=== PATIENT | female | born 1990 | race Hispanic/Latino ===

== ENCOUNTER 2017-01-29 12:06 | Inpatient (IN) | payer MEDICAID ==
--- NOTE | 2017-01-29 13:23 | Ultrasound Report ---
BIOPHYSICAL PROFILE: INDICATION: well being. COMPARISON: None similar. TECHNIQUE: Transabdominal ultrasound with Doppler interrogation. 2 - breathing movements 2 - movements 2 - posture and tone 2 - Qualitative amniotic fluid volume 8 - TOTAL SCORE OF POSSIBLE 8 Heart Rate (bpm) 165
--- NOTE | 2017-01-29 14:18 | Ultrasound Report ---
OB LIMITED INDICATION: well being. Evaluate NAYANA. COMPARISON: None similar at this institution. TECHNIQUE: Transabdominal grayscale ultrasound with Doppler interrogation. Gestation: Haq Position: Cephalic Amniotic Fluid: WNL (7-24 cm) NAYANA = 20 cm Heart Rate: 165 BPM
[2017-01-29 14:46] LABS: Urine Drugs of Abuse Note Disclamer
[2017-01-29 14:53] LABS: Bilirubin,Urine NEG (Negative); Blood,Urine NEG (Negative); Ketones,Urine NEG (Negative); Leukocyte Esterase,Urine TR (Negative); Mucus,Urine FEW /HPF; Nitrite,Urine NEG (Negative); Protein,Urine <15 mg/dL mg/dL (Negative); Urobilinogen,Urine < 2.0 mg/dL (<2.0)
--- NOTE | 2017-01-29 15:04 | History and Physical Report ---
History of Present Illness Date of examination: 01/29/17 Date of admission: 01/29/17 12:23 Chief complaint: Elevated blood pressure History of present illness: 26-year-old at 35+6 weeks presents with the above complaints and issues, she is a [facility] patient. Essential history this patient seen in the office and was sent to the triage for concern about vaginal bleeding; she had a BPP and NAYANA done which were 8 out of 8 with an NAYANA of 20. Triage however, patient was noted to have elevated blood pressures in the range 141-157/97-109. She gives an oral history of having ??increased blood pressure prior to being but it is not clear that she saw a physician and she was never started on medication. Early In , she claims her blood pressure was normal. Denies headache, no scotomata but she does have a history of heartburn. Past History Past Medical History: no pertinent history, other (per HPI) Past Surgical History: no surgical history [employer] History: denies: chlamydia, gonorrhea, hepatitis B, hepatitis C, herpes, HIV , syphilis, trichomonas Social history: single, smoking, full code. denies: alcohol abuse, prescription drug abuse, IV drug use - Obstetrical History Expected Date of Delivery: 02/27/17 Actual Gestation: 35 Week(s) 6 Day(s) : 1 Para: 0 Medications and Allergies Allergies Allergy/AdvReac Type Severity Reaction Status Date / Time No Known Allergies Allergy Unverified 01/29/17 12:21 Review of Systems Constitutional: no fever, no chills, no chronic headaches Eyes: no diplopia, no photophobia, no loss of peripheral vision, no loss of vision, no blind spots Cardiovascular: high blood pressure, no chest pain, no syncope, no shortness of breath, no dyspnea on exertion Respiratory: no cough, no shortness of breath, no dyspnea on exertion Gastrointestinal: heartburn, no abdominal pain, no nausea, no vomiting, no diarrhea Genitourinary: no vaginal bleeding, no leakage of fluid - Vital Signs Vital signs: Vital Signs Pulse BP 97 H 149/108 01/29/17 12:18 01/29/17 12:18 Temp Pulse Resp BP Pulse Ox 94 H 141/97 98 01/29/17 14:59 01/29/17 14:55 01/29/17 14:59 - Physical Exam Cardiovascular: Regular rate Lungs: Positive: Clear to auscultation, Normal air movement Abdomen: Positive: normal appearance, soft. Negative: distention, tenderness, guarding, rigidity Genitourinary (Female): Positive: normal external genitalia Uterus: Positive: enlarged (EFW ~ 3200). Negative: tender Extremities: Positive: normal - Obstetrical FHR: category 1 Results All other labs normal. Assessment and Plan A: 26-year-old at 35+6 weeks with elevated blood pressure ?Gest HTN ?CHTN ? Pre-E -Cat 1 tracing P: -Admit for observation -Obtain HELLP labs and 24-hour urine protein -obtain UDS -BMZ course now -Growth scan -Start antihypertensives or/and magnesium for persistent severe range blood pressure -DisPosition after results available including possible MFM consult - Patient Problems (1) 35 to 36 weeks gestation of Current Visit: Yes Status: Acute (2) Hypertension affecting in third trimester Current Visit: Yes Status: Acute
[2017-01-29 15:13] LABS: Hematocrit 38.9 % (30.3-42.9); Hemoglobin 12.9 gm/dl (10.1-14.3); Mean Corpuscular HGB Conc 33 % (30-34); Mean Corpuscular Hemoglobin 29 pg (28-32); Mean Corpuscular Volume 86 fl (79-97); Platelet Count 200 K/mm3 (140-440); Red Blood Count 4.51 M/mm3 (3.65-5.03); Red Cell Distribution Width 13.4 % (13.2-15.2); White Blood Count 14.5 K/mm3 (4.5-11.0)
[2017-01-29] MEDS ORDERED: MILK OF MAGNESIA PO PRN (15:13)
[2017-01-29] MEDS ORDERED: ZOFRAN IV PRN (15:13)
[2017-01-29] MEDS ORDERED: MYLICON PO PRN (15:13)
[2017-01-29] MEDS ORDERED: SENOKOT S PO PRN (15:13)
[2017-01-29] MEDS ORDERED: TYLENOL PO PRN (15:13)
[2017-01-29] MEDS ORDERED: COLACE PO PRN (15:13)
[2017-01-29] MEDS ORDERED: APRESOLINE IV PRN (15:17)
[2017-01-29 15:28] LABS: Alanine Aminotransferase 8 units/L (7-56); Lactate Dehydrogenase 165 units/L (91-180); Uric Acid 5.7 mg/dL (3.5-7.6)
[2017-01-29] MEDS: CELESTONE SOLUSPAN IM SCH (18:02)
[2017-01-29] MEDS: LACTATED RINGERS 1,000 ML IV SCH (21:16)
[2017-01-29] MEDS ORDERED: AMBIEN PO PRN (22:34)
[2017-01-30] MEDS: LACTATED RINGERS 1,000 ML IV SCH ×2 (04:32→12:22)
--- NOTE | 2017-01-30 08:22 | Admit Criteria Form ---
Admission Criteria Documentation: GENERAL ADMISSION CRITERIA (Place 'X' for any and all applicable criteria): Admission is indicated for ANY ONE of the following: [ ]I. Hemodynamic instability as indicated by ANY ONE of the following(1)(2) (3)(4)(5): [ ]a) Vital sign abnormality not readily corrected by appropriate treatment within 12 to 24 hours indicated by ANY ONE of the following: [ ]i) Hypotension [ ]ii) Symptomatic Tachycardia unresponsive to treatment (eg , analgesia, fluids, sedation as indicated) [ ]iii) Orthostatic vital sign changes unresponsive to treatment (eg, fluids) [ ]b) Vital sign abnormality that is severe indicated by ANY ONE of the following: [ ]i) Inadequate perfusion indicated by ANY ONE of the following: [ ]1) Lactic acidosis (greater than 2 mmol/L) [ ]2) New abnormal capillary refill (greater than 3 seconds) [ ]3) Other metabolic acidosis (arterial pH less than 7.35) not otherwise explained [ ]4) Reduced urine output [ ]5) Altered mental status [ ]6) Myocardial Ischemia [ ]v) Mean arterial pressure[A] less than 60 mm Hg [ ]vi) Mean arterial pressure[A] less than 70 mm Hg after 30 minutes of appropriate treatment (eg, fluid resuscitation) [ ]vii) IV inotropic or vasopressor medication required to maintain adequate blood pressure or perfusion [ ]viii) Sustained heart rate greater than 120 beats per minute in adult or child 6 years or older[B]] [ ]II. Hypertension requiring inpatient treatment as indicated by ANY ONE of the following(6)(7)(8): [ ]a) SBP greater than 220 mm Hg or DBP greater than 120 mm Hg despite treatment [ ]b) SBP greater than 140 mm Hg or DBP greater than 100 mm Hg with evidence of acute end organ damage as indicated by ANY ONE of the following: [ ]i) Encephalopathy [ ]ii) Acute renal failure as indicated by new onset of ANY ONE of the following(9)(10)(11)(12)(13): [ ]1) A 3-fold rise in serum creatinine from baseline [ ]2) Serum creatinine greater than 4 mg/dL ( 354 micromoles/L) with acute rise greater than 0.5 mg/dL (44.2 micromoles/L) [ ]3) Reduction of more than 75% in estimated glomerular filtration rate from baseline [ ]4) Estimated glomerular filtration rate less than 35 mL/min/1.73m2 (0.59 mL/sec/1.73m2) in child up to 18 years of age [ ]5) Cessation of urine output indicated by ALL of the following: [ ]A. Adequate volume status [ ]B. Inadequate urine output as indicated by ANY ONE of the following: [ ]a. Urine output less than 0.3 mL/kg/hr for 24 hours [ ]b. Anuria (urine output less than 0.1 mL/kg/hr) for 12 hours [ ]iii) Aortic dissection [ ]iv) Myocardial ischemia [ ]v) Left ventricular heart failure [ ]vi) Retinal hemorrhage [ ]vii) Other significant finding [ ]c) Hypertension in child requiring inpatient treatment as indicated by ALL of the following(14)(15)(16): [ ]i) Outpatient treatment not effective, not available, or not appropriate [ ]ii) SBP or DBP greater than 95th percentile for age [ ]iii) Evidence of acute end organ damage as indicated by ANY ONE of the following: [ ]1) Altered mental status [ ]2) Acute renal failure as indicated by new onset of ANY ONE of the following(9)(10)(11)(12)(13): [ ]A. A 3-fold rise in serum creatinine from baseline [ ]B. Serum creatinine greater than 4 mg/dL (354 micromoles/L) with acute rise greater than 0.5 mg/dL (44.2 micromoles/L) [ ]C. Reduction of more than 75% in estimated glomerular filtration rate from baseline [ ]D. Estimated glomerular filtration rate less than 35 mL/min/1.73m2 (0.59 mL/sec/1.73m2)in child up to 18 years of age [ ]E. Cessation of urine output indicated by ALL of the following: [ ]a. Adequate volume status [ ]b. Inadequate urine output as indicated by ANY ONE of the following: [ ]1) Urine output less than 0.3 mL/kg/hr for 24 hours [ ]2) Anuria (urine output less than 0.1 mL/kg/hr) for 12 hours [ ]3) Severe headache [ ]4) Visual disturbance [ ]5) Retinal hemorrhage [ ]6) Other significant finding [ ]III. Acute cardiac or peripheral ischemia as indicated by ANY ONE of the following: [ ]a) Acute coronary syndrome(17)(18) [ ]b) Acute peripheral ischemia (eg, pulseless, cool, mottled, or cyanotic extremity)(19) [ ]IV. Cardiac arrhythmias or findings of immediate concern indicated by ANY ONE of the following(20)(21): [ ]a) Heart rhythms that are inherently dangerous or unstable indicated by ANY ONE of the following(22)(23)(24): [ ]i) Resuscitated ventricular fibrillation or cardiac arrest [ ]ii) Ventricular escape rhythm [ ]iii) Sustained ventricular tachycardia (30 seconds or more of ventricular rhythm at greater than 100 beats per minute) [ ]iv) Nonsustained ventricular tachycardia and ANY ONE of the following: [ ]1) Suspected cardiac ischemia as cause or consequence of ventricular tachycardia [ ]2) In setting of acute myocarditis [ ]b) Unstable cardiac conduction defects indicated by ANY ONE of the following(24)(25)(26): [ ]i) Type II second-degree atrioventricular block [ ]ii) Third-degree atrioventricular block [ ]iii) New-onset left bundle branch block with suspected myocardial ischemia [ ]c) Any heart rhythm and ANY ONE of the following(22)(23)(27)(28)( 29): [ ] i) Continuous long-term ECG monitoring needed (eg, initiation of drug requiring monitoring for more than 24 hours) [ ] ii) Patient has automatic implanted cardioverter defibrillator that is repeatedly firing, malfunctioning, or in need of immediate adjustment of settings beyond the scope of ambulatory or observation care. [ ]d) Heart rhythms of concern due to ANY ONE of the following: [ ]i) Hypotension [ ]ii) Respiratory distress [ ]iii) Association with other significant symptoms (eg, bradycardia with syncope or ongoing dizziness, supraventricular tachycardia with chest pain) (27)(28) (30) [ ] V. Severe heart failure as indicated by ANY ONE of the following ( 31)(32): [ ]a) Respiratory distress [ ]b) Hypotension [ ]c) Anasarca (refractory to outpatient therapy) [ ]d) Cardiac arrhythmias of immediate concern [ ]e) Myocardial ischemia [ ]. Respiratory abnormalities, including ANY ONE of the following(33)(34) (35)(36): [ ]a) Respiratory rate greater than 30 breaths per minute unresponsive to treatment [A] [ ]b) New saturation of arterial oxygen less than 90% [ ]c) New partial pressure of carbon dioxide greater than 44 mm Hg ( 5.9 kPa) [ ]d) Supplemental oxygen or respiratory treatments needed that are new or not performable at other levels of care [ ]e) New-onset cyanosis [ ]f) Inability to protect airway [ ]g) Chronic lung disease with severe deterioration (not responsive to emergency and observation care treatment as appropriate) as indicated by ANY ONE of the following(34)(36 ): [ ]i) SaO2 5% below baseline in patient with chronic hypoxemia [ ]ii) New requirement for supplemental oxygen to keep SaO2 at baseline or acceptable level [ ]iii) Required supplemental oxygen performable only in acute inpatient setting [ ]iv) Severe airflow or ventilation abnormalities [ ]v) Previously mobile patient unable to walk between rooms [ ]vi Inability to eat or sleep due to dyspnea [ ]vii) Rapid rate of exacerbation onset [ ]viii) Altered mental status ]VII. Severe airflow or ventilation abnormalities (not responsive to emergency and observation care treatment as appropriate) as indicated by ANY ONE of the following(33)(34)(35)(37): [ ]a) PCO2 greater than 42 mm Hg (5.6 kPa) and pH less than 7.35 (new ) [ ]b) Documented PCO2 increased more than 5 mm Hg (0.7 kPa) from disease baseline [ ]c) Airflow measurements [B] less than 60% of previous best or predicted (eg, peak expiratory flow rate less than 300 L/minute) despite intensive emergent treatment [C] [ ]d) Required respiratory treatments that are performable only in acute inpatient setting [ ]VIII. Impending or actual respiratory arrest ( Also use Respiratory Failure GRG for severe respiratory disease and long-term mechanical ventilation patients) [ ]IX. Neurologic abnormalities, including ANY ONE of the following: [ ]a) New findings that suggest ANY ONE of the following: [ ]i) [employer] infection(38) [ ]ii) Cerebral bleeding, ischemia, or vasospasm(39)(40) [ ]iii) Increased intracranial pressure, hydrocephalus, or cerebral edema(41)(42)(43) [ ]iv) Spinal cord injury(44) [ ]b) Uncontrolled seizures(45) [ ]c) New-onset coma (eg, Vernon coma scale score less than 9) or unexplained abnormal mental status (eg, Vernon coma scale score less than 14) [D](41)(46)(47) [ ]X. New-onset severe neurologic findings requiring inpatient care; examples include(42)(48)(49): [ ]a) Papilledema [ ]b) Cerebral edema [ ]c) Mass effect on CT scan [ ]XI. Suspected acute intra-abdominal process with peritoneal signs, abdominal mass, or similar findings (50)(51)(52) [ ]XII. Severe physiologic disorder remaining after emergency or observation level care (as appropriate) as indicated by ANY ONE of the following (53): [ ]a) Significant dehydration [ ]b) Diabetic ketoacidosis [ ]c) Hyperglycemic hyperosmolar state (eg, osmolality greater than 320 mOsm/kg (mmol/kg) [ ]d) Hypoglycemia [ ]e) Other (new) acid-base disorder with pH less than 7.35 or greater than 7.5(54) [ ]f) Thyroid storm (55) [ ]g) Myxedema coma (55) [ ]XIII. Abdominal abnormalities with ANY ONE of the following(56)(57): [ ]a) Absent bowel sounds with complete ileus [ ]b) Signs of intestinal obstruction or peritonitis [E] [ ]c) Nausea and vomiting that cannot be controlled with outpatient or observation care [ ]XIV. Acute renal failure as indicated by new onset of ANY ONE of the following(9)(10)(11)(12)(13): [ ]a) A 3-fold rise in serum creatinine from baseline [ ]b) Serum creatinine greater than 4 mg/dL (354 micromoles/L) with acute rise greater than 0.5 mg/dL (44.2 micromoles/L) [ ]c) Reduction of more than 75% in estimated glomerular filtration rate from baseline [ ]d) Estimated glomerular filtration rate less than 35 mL/min/ 1.73m2 (0.59 mL/sec/1.73m2) in child up to 18 years of age [ ]e) Cessation of urine output indicated by ALL of the following: [ ]i) Adequate volume status [ ]ii) Inadequate urine output as indicated by ANY ONE of the following: [ ]1) Urine output less than 0.3 mL/kg/hr for 24 hours [ ]2) Anuria (urine output less than 0.1 mL/kg/hr) for 12 hours [ ]XV. Significant uremic complications as indicated by ANY ONE of the following(58)(59)(60): [ ]a) Outpatient therapy is ineffective or not feasible for ANY ONE of the following: [ ]i) Severe heart failure [ ]ii) Severehypertension [ ]iii) Pleural effusion [ ]iv) Pericarditis or pericardial effusion [ ]b) Cardiac arrhythmias of immediate concern [ ]c) Intractable nausea or vomiting [ ]d) Recurrent seizures [ ]e) Encephalopathy [ ]f) Bleeding abnormalities (eg, platelet dysfunction) with active (eg, gastrointestinal) bleeding [ ]g) Dialysis indicated before long-term access or ambulatory arrangements can be made [ ]h) Significant metabolic or electrolyte abnormalities (eg, severe acidosis or hyperkalemia) [ ]XVI. High fever or other high-risk infection situation as indicated by ANY ONE of the following(61)(62)(63)(64): [ ]a) Outpatient and observation care antimicrobial treatment unavailable, not effective, or not appropriate [ ]b) Documented bacteremia [ ]c) Temperature greater than 40.5 degrees C (104.9 degrees F) ( oral) [ ]d) Temperature greater than 39.5 degrees C (103.1 degrees F) ( oral) or less than 36 degrees C (96.8 degrees F) (rectal) that does not respond to e treatment and observation care [ ] XVII. Temperature less than 95 degrees F (35 degrees C)(rectal)(65) [ ] XVIII. Severe nutritional abnormalities as indicated by ALL of the following (66)(67): [ ]a) Inability to tolerate or establish sufficient oral or other enteral nutrition in outpatient setting [ ]b) Parenteral nutrition regimen need that must be implemented on inpatient basis [ ] XIX. Severe electrolyte abnormalities indicated by ALL of the following(68) (69)(70): [ ]a) Electrolytes and associated findings are not as expected for patient baseline or acceptable treatment effects. [ ]b) Severe abnormalities indicated by ANY ONE of the following: [ ]i) Sodium less than 130 mEq/L (mmol/L) (new) [ ]ii)Sodium less than 135 mEq/L (mmol/L) with ANY ONE of the following: [ ]1) Uncorrectable (to near normal or chronic baseline) after trial of outpatient and emergency treatment [ ]2) Altered mental status [ ]3) Seizures [ ]4) Severe medical etiology requiring inpatient management (eg, heart failure, hypovolemia) [ ]iii) Sodium greater than 155 mEq/L (mmol/L) [ ]iv) Sodium greater than 150 mEq/L (mmol/L) with ANY ONE of the following: [ ]1) Uncorrectable (to near normal or chronic baseline) with outpatient and emergency treatment [ ]2) Altered mental status [ ]3) Seizures [ ]4) Severe medical etiology (eg, hypovolemia, diabetes insipidus) [ ]v) Potassium less than 2.5 mEq/L (mmol/L) despite outpatient and emergency treatment [ ]vi) Potassium less than 3 mEq/L (mmol/L) with ANY ONE of the following: [ ]1) Weakness [ ]2) Cardiac abnormality (eg, arrhythmia, conduction disturbance) [ ]3) Cardiac ischemia [ ]4) Ileus [ ]5) Ongoing medical cause requiring inpatient management (eg, acute renal wasting or SIADH) [ ]6) Other severe symptoms [ ]vii) Potassium greater than 6.5 mEq/L (mmol/L) [ ]viii) Potassium greater than 5 mEq/L (mmol/L) with ANY ONE of the following: [ ]1) Uncorrectable (to near normal or chronic baseline) with outpatient and emergency treatment [ ]2) Severe ECG findings [F] [ ]3) Acute worsening of renal failure (creatinine greater than 2.5 mg/dL (221 micromoles/L) or significant elevation for age and size) [ ]4) Severe weakness [ ]5) Severe medical etiology (eg, hemolysis, infection, drug overdose) [ ]ix) Calcium less than 7 mg/dL (1.75 mmol/L) despite outpatient and emergency treatment (72) [ ]x) Calcium less than 8 mg/dL (2 mmol/L) with significant symptoms or findings; examples include(72): [ ]1) Altered mental status [ ]2) Muscle spasms [ ]3) Seizures [ ]4) Breathing difficulty [ ]5) Cardiac abnormality (eg, arrhythmia or conduction disturbance) [ ]xi) Calcium greater than 14 mg/dL (3.5 mmol/L)(72) [ ]xii) Calcium greater than 12 mg/dL (3 mmol/L) with ANY ONE of the following(72): [ ]1) Uncorrectable (to near normal or chronic baseline) with outpatient and emergency treatment [ ]2) Significant dehydration or hypovolemia as indicated by ALL of the following(70)(73)(74): [ ]A. Not resolved with initial treatments [ ]B. Clinically significant dehydration as indicated by ANY ONE of the following: [ ]a. Vomiting refractory to outpatient treatment (ie, precluding oral rehydration) [ ]b. Inability to drink [ ]c. Hypernatremia or other electrolyte abnormality unable to be corrected with outpatient and emergency treatment [ ]d. Failure to remain hydrated with outpatient therapy [ ]e. Reduced urine output [ ]f. Hypotension [ ]g. Serious cause for dehydration requiring acute hospitalization (eg, bowel obstruction, increased intracranial pressure, infectious cause) [ ]h. Child with ANY ONE of the following(75): [ ]1) Severe abdominal tenderness [ ]2) Adequate care not available at home [ ]3) Severe dehydration ( greater than 9% loss of body weight) [ ]4) Significant symptoms or findings; examples include: [ ]A. Altered mental status [ ]B. Cardiac abnormality (eg, arrhythmia, conduction disturbance) [ ]C. Malignant etiology requiring inpatient treatment [ ]xiii) Phosphorus less than 1 mg/dL (0.32 mmol/L) [ ]xiv) Phosphorus less than 1.5 mg/dL (0.48 mmol/L) with ANY ONE of the following: [ ]1) Patient unresponsive to outpatient and emergency treatment [ ]2) Significant symptoms or findings; examples include: [ ]A. Weakness [ ]B. Altered mental status [ ]C. Breathing difficulty [ ]D. Seizures [ ]E. Rhabdomyolysis [ ]xv) Phosphorus greater than 10 mg/dL (3.2 mmol/L) [ ]xvi) Phosphorus greater than 4.5 mg/dL (1.45 mmol/L) (new) with ANY ONE of the following: [ ]1) Severe medical etiology (eg, crush injury, acute renal failure) [ ]2) Associated hypocalcemia with significant findings; examples include: [ ]A. Neurologic symptoms [ ]B. Altered mental status [ ]C. Muscle spasms [ ]D. Seizures [ ]E. Breathing difficulty [ ]F. Cardiac abnormality (eg, arrhythmia, conduction disturbance) [ ]xvii) Magnesium less than 1 mg/dL (0.41 mmol/L) [ ]xviii) Magnesium less than 1.5 mg/dL (0.62 mmol/L) with ANY ONE of the following: [ ]1) Patient unresponsive to outpatient and emergency treatment [ ]2) Associated hypocalcemia with significant findings; examples include: [ ]A. Altered mental status [ ]B. Muscle spasms [ ]C. Seizures [ ]D. Breathing difficulty [ ]E. Cardiac abnormality (eg, arrhythmia , conduction disturbance) [ ]3) Associated hypokalemia (potassium less than 3 mEq/L (mmol/L)) with risk of arrhythmia [ ]xix) Magnesium greater than 4 mEq/L (2 mmol/L) [ ]xx) Magnesium greater than 2.5 mEq/L (1.25 mmol/L) with significant symptoms or findings; examples include: [ ]1) Weakness [ ]2) Altered mental status [ ]3) Cardiac abnormality (eg, arrhythmia, conduction disturbance) [ ]4) Breathing difficulty [ ]5) Severe medical etiology (eg, renal failure, hypovolemia) [ ]xxi) Uric acid greater than 20 mg/dL (1190 micromoles/L)(76) [ ]xxii) Uric acid greater than 8 mg/dL (476 micromoles/L) with significant symptoms or findings of tumor lysis syndrome; examples include(76): [ ]1) Creatinine greater than 1.5 times upper limit of normal [ ]2) Cardiac abnormality (eg, arrhythmia, conduction disturbance) [ ]3) Seizure [ ]XX. Acute blood loss causing significant abnormality as indicated by ANY ONE of the following(77)(78): [ ]a) Hemoglobin less than 10 g/dL (100 g/L) (not baseline) [ ]b) Hematocrit less than 30% (0.30) (not baseline) [ ]c) Repeat hematocrit decreased more than 2% (0.02) [ ]d) Uncontrolled bleeding [ ]XXI. Severe anemia indicated by ANY ONE of the following(78)(79): [ ]a) Altered mental status [ ]b) Chest pain [ ]c) Exertional dyspnea [ ]d) Syncope [ ]e) Other findings suggesting inadequate perfusion [ ]f) Treatment with transfusion or volume replacement is ineffective at resolving ANY ONE of the following [G]: [ ]i) Tachycardia for age [ ]ii) Orthostatic vital sign changes as indicated by ANY ONE of the following(80): [ ]1) Fall in SBP of 20 mm Hg or more 1 to 3 minutes after patient sits or stands from recumbent position [ ]2) Fall in DBP of 10 mm Hg or more 1 to 3 minutes after patient sits or stands from recumbent position [ ]XXII. High-risk low platelet count as indicated by ANY ONE of the following( 81)(82): [ ]a) Severe or life-threatening bleeding (eg, intracranial, major gastrointestinal, or extensive mucosal bleeding), with any reduced platelet count [ ]b) Platelet count less than 20,000/mm3 (20 x109/L) with any active bleeding [ ]c) Platelet count less than 10,000/mm3 (10 x109/L) with minor purpura or petechiae [ ]d) Platelet count less than 5000/mm3 (5 x109/L) [ ]e) Low platelet count with hemolytic anemia [ ]XXIII. Disseminated intravascular coagulation(77)(83) [ ]XXIV. Severe adverse drug or systemic toxin reaction requiring inpatient treatment; examples include(84)(85): [ ]a) Serotonin syndrome(86) [ ]b) Neuroleptic malignant syndrome(86) [ ]c) Cholinergic syndrome with severe symptoms (eg, bronchorrhea, weakness, mental status changes, seizures) [ ]d) Sympathetic syndrome with severe symptoms (eg, seizures, mental status changes, cardiac dysrhythmias) [ ]e) Anticholinergic syndrome [ ]XXV. Severe pain requiring acute inpatient management as indicated by ALL of the following (87)(88)(89): [ ]a) Continuous or frequent (eg, every 2 to 4 hours) parenteral analgesics required [H] [ ]b) Rapid improvement expected from treatment or acute intervention (eg, surgery, anesthesia procedure) [ ]XXVI.Severe behavioral health issues judged unmanageable at a lower level of care (eg, residential) in a patient who is ANY ONE of the following(91) [ ]a) Acutely suicidal [ ]b) A danger to self (eg, self-mutilating or suicidal behavior) [ ]c) A danger to others (eg, assaultive or homicidal behavior) [ ]d) Incapacitated because of grave disability (eg, inability to provide for self at lower level of care) (92) [ X]XXVII. Inpatient monitoring needed; examples include(1)(3)(87)(93)(94)(95)( 96): [ ]a) Vital signs, neurologic signs, or vascular checks more frequently than every 4 hours [ ]b) Cardiac or respiratory monitoring beyond the scope (eg, over 24 hours) of observation care [ ]c) Pulmonary artery catheter monitoring [ ]d) Suspected compartment syndrome(97) (98) [ ]e) Cerebral bleeding, hydrocephalus, or vasospasm monitoring [ ]f) Increased intracranial pressure or cerebral edema monitoring [ X]g) monitoring [ ]XXVIII. Treatment requiring inpatient care; examples include: [ ]a) IV fluid to replace significant ongoing losses (greater than 3 L/m2 per day)(53) [ ]b) High concentration oxygen (greater than 40%)(33)(99)(100) [ ]c) Frequent respiratory therapy (more frequently than every 4 hours) to maintain airflow rates greater than 60% of baseline(33)(99)(100) [ ]d) Epidural analgesia(87) [ ]e) IV anticoagulation, vasoactive, or antiarrhythmic medication(19 )(23) [ ]f) Acute thrombolytics (generally require 24 hours of observation )(101)(102) [ ]XXIX. Emergency procedures needed; examples include: [ ]a) Emergency inpatient surgery [ ]b) Temporary pacemaker placement(103) [ ]c) Chest tube placement with active evacuation (eg, suction, drainage)(104) [ ]d) Emergent cardioversion(105) [ ]e) Emergent cardiac or vascular procedures (eg, cardiac catheterization, angioplasty) (17)(18) [ ]f) Emergent dialysis access placement and institution(10)(106) [ ]g) Emergent pericardiocentesis(107) [ ]h) Emergent plasmapheresis or leukapheresis(83) [ ]i) Emergent tracheostomy The original [employer] content created by [employer] has been revised. The portions of the content which have been revised are identified through the use of italic text or in bold, and [employer] has neither reviewed nor approved the modified material. All other unmodified content is copyright [employer]. Please see references footnoted in the original [employer] edition 2016 Admission Criteria Met: Yes
[2017-01-30] MEDS ORDERED: PRENATAL VITAMIN PO SCH (10:00)
--- NOTE | 2017-01-30 10:55 | Ultrasound Report ---
Gestation: Single Position: Cephalic Amniotic Fluid: NAYANA = 25 cm Placenta: Anterior and lateral Placental Grade: 1 Heart Rate: 141 BPM Cervical length: 3 cm (Normal > 3 cm) It is too early for a anatomical survey NEUROANATOMY VISUALIZED: Choroid Plexus/normal Lateral Ventricle/normal ANATOMY VISUALIZED: Normal Stomach Kidneys Bladder Diaphragm 4 Chamber Heart Heart 3 Vessel Cord Abd. Cord Insert SPINE VISUALIZED: Limited Transverse/normal Limited spine due to position/normal BPD: 8.8 cm = 35 w 5 d HC: 32.2 cm = 36 w 3 d AC: 32.1 cm = 26 w 0 d FL: 7 cm = 35 w 6 d HC/AC Ratio: 1.01 Cephalic Index: 79.7 Clinical age = 35 w 6 d EDC: 02/27/17 US Gest. 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 Longitudinal and AP spine not visualized optimally. Impression: Findings as detailed above.
--- NOTE | 2017-01-30 10:56 | Progress Note ---
Assessment and Plan A: 26-year-old at 36 weeks with elevated blood pressure ?Gest HTN ?CHTN ?Pre- E -Cat 1 tracing P: -Continue present care -Await 24-hour urine protein for final disposition - Patient Problems (1) 35 to 36 weeks gestation of Current Visit: Yes Status: Acute (2) Hypertension affecting in third trimester Current Visit: Yes Status: Acute Subjective - Subjective Date of service: 01/30/17 Interval history: Patient seen and examined, stable doing well. No headache, no scotomata no epigastric discomfort. Her blood pressure has remained less than severe range Patient reports: new complaints, movement normal, no loss of fluid, no vaginal bleeding, no contractions Objective - Vital Signs Vital Signs: Vital Signs - 12hr 01/29/17 01/30/17 01/30/17 23:09 00:02 00:07 Temperature Pulse Rate 86 94 H 91 H Respiratory Rate Blood Pressure 133/75 O2 Sat by Pulse 97 96 Oximetry 01/30/17 01/30/17 01/30/17 00:08 00:12 00:17 Temperature 98.6 F Pulse Rate 100 H 100 H 98 H Respiratory 18 Rate Blood Pressure 133/79 O2 Sat by Pulse 96 96 Oximetry 01/30/17 01/30/17 01/30/17 00:22 00:27 00:32 Temperature Pulse Rate 99 H 100 H 101 H Respiratory Rate Blood Pressure O2 Sat by Pulse 96 95 96 Oximetry 01/30/17 01/30/17 01/30/17 00:37 00:42 00:47 Temperature Pulse Rate 102 H 109 H 105 H Respiratory Rate Blood Pressure O2 Sat by Pulse 96 96 95 Oximetry 01/30/17 01/30/17 01/30/17 00:52 00:57 01:02 Temperature Pulse Rate 109 H 100 H 95 H Respiratory Rate Blood Pressure O2 Sat by Pulse 95 95 96 Oximetry 01/30/17 01/30/17 01/30/17 01:07 01:12 01:17 Temperature Pulse Rate 94 H 98 H 97 H Respiratory Rate Blood Pressure 119/62 O2 Sat by Pulse 96 96 94 Oximetry 01/30/17 01/30/17 01/30/17 01:22 01:27 01:32 Temperature Pulse Rate 98 H 100 H 99 H Respiratory Rate Blood Pressure O2 Sat by Pulse 96 96 96 Oximetry 08/01/30/17 01/30/17 01:37 01:42 01:47 Temperature Pulse Rate 94 H 96 H 93 H Respiratory Rate Blood Pressure O2 Sat by Pulse 96 97 96 Oximetry 01/30/17 01/30/17 01/30/17 01:52 01:57 02:02 Temperature Pulse Rate 95 H 98 H 94 H Respiratory Rate Blood Pressure O2 Sat by Pulse 95 94 95 Oximetry 01/30/17 01/30/17 01/30/17 02:03 02:07 02:08 Temperature Pulse Rate 95 H 89 95 H Respiratory Rate Blood Pressure 114/61 O2 Sat by Pulse 94 96 94 Oximetry 01/30/17 01/30/17 01/30/17 02:12 02:17 02:22 Temperature Pulse Rate 95 H 92 H 95 H Respiratory Rate Blood Pressure O2 Sat by Pulse 93 93 93 Oximetry 01/30/17 01/30/17 01/30/17 02:27 02:32 02:37 Temperature Pulse Rate 84 92 H 94 H Respiratory Rate Blood Pressure O2 Sat by Pulse 91 93 92 Oximetry 01/30/17 01/30/17 01/30/17 02:42 02:47 02:49 Temperature Pulse Rate 93 H 111 H 105 H Respiratory Rate Blood Pressure O2 Sat by Pulse 92 95 94 Oximetry 01/30/17 01/30/17 01/30/17 02:52 02:56 02:57 Temperature Pulse Rate 100 H 100 H 107 H Respiratory Rate Blood Pressure O2 Sat by Pulse 94 94 95 Oximetry 01/30/17 01/30/17 01/30/17 03:02 03:07 03:17 Temperature Pulse Rate 102 H 101 H 107 H Respiratory Rate Blood Pressure 130/75 O2 Sat by Pulse 96 96 99 Oximetry 01/30/17 01/30/17 01/30/17 03:22 03:27 03:32 Temperature Pulse Rate 105 H 98 H 99 H Respiratory Rate Blood Pressure O2 Sat by Pulse 99 99 97 Oximetry 01/30/17 01/30/17 01/30/17 03:37 03:42 03:47 Temperature Pulse Rate 98 H 100 H 100 H Respiratory Rate Blood Pressure O2 Sat by Pulse 97 96 97 Oximetry 01/30/17 01/30/17 01/30/17 03:52 03:57 04:02 Temperature Pulse Rate 96 H 101 H 109 H Respiratory Rate Blood Pressure O2 Sat by Pulse 97 98 97 Oximetry 01/30/17 01/30/17 01/30/17 04:07 04:10 04:12 Temperature 98.7 F Pulse Rate 100 H 106 H 107 H Respiratory 18 Rate Blood Pressure 141/84 141/84 O2 Sat by Pulse 96 97 Oximetry 01/30/17 01/30/17 01/30/17 04:17 04:22 04:27 Temperature Pulse Rate 105 H 105 H 107 H Respiratory Rate Blood Pressure O2 Sat by Pulse 97 97 97 Oximetry 01/30/17 01/30/17 01/30/17 04:32 04:37 04:42 Temperature Pulse Rate 106 H 106 H 109 H Respiratory 20 Rate Blood Pressure O2 Sat by Pulse 96 97 98 Oximetry 01/30/17 01/30/17 01/30/17 04:47 04:52 04:57 Temperature Pulse Rate 106 H 100 H 103 H Respiratory Rate Blood Pressure O2 Sat by Pulse 98 96 97 Oximetry 01/30/17 01/30/17 01/30/17 05:02 05:07 05:08 Temperature Pulse Rate 108 H 99 H 100 H Respiratory Rate Blood Pressure 128/62 O2 Sat by Pulse 96 98 Oximetry 01/30/17 01/30/17 01/30/17 05:12 05:17 05:22 Temperature Pulse Rate 106 H 101 H 114 H Respiratory Rate Blood Pressure O2 Sat by Pulse 98 99 99 Oximetry 01/30/17 01/30/17 01/30/17 06:08 07:09 08:07 Temperature Pulse Rate 103 H 98 H 106 H Respiratory Rate Blood Pressure 150/87 118/58 137/76 O2 Sat by Pulse Oximetry 01/30/17 01/30/17 09:08 10:09 Temperature Pulse Rate 105 H 111 H Respiratory Rate Blood Pressure 141/91 147/88 O2 Sat by Pulse Oximetry - Labs Labs: Abnormal Labs 01/29/17 01/29/17 14:48 14:48 WBC 14.5 H Creatinine 0.5 L Laboratory Results - last 24 hr 01/29/17 01/29/17 01/29/17 14:39 14:39 14:48 WBC 14.5 H RBC 4.51 Hgb 12.9 Hct 38.9 MCV 86 MCH 29 MCHC 33 RDW 13.4 Plt Count 200 Creatinine Estimated GFR Uric Acid AST ALT Lactate Dehydrogenase Urine Color Yellow Urine Turbidity Clear Urine pH 6.0 Ur Specific Ladd 1.014 Urine Protein <15 mg/dl Urine Glucose (UA) Neg Urine Ketones Neg Urine Blood Neg Urine Nitrite Neg Urine Bilirubin Neg Urine Urobilinogen < 2.0 Ur Leukocyte Esterase Tr Urine WBC (Auto) 3.0 Urine RBC (Auto) 3.0 U Epithel Cells (Auto) 1.0 Urine Mucus Few Urine Opiates Screen Presumptive negative Urine Methadone Screen Presumptive negative Ur Barbiturates Screen Presumptive negative Ur Phencyclidine Scrn Presumptive negative Ur Amphetamines Screen Presumptive negative U Benzodiazepines Scrn Presumptive negative Urine Cocaine Screen Presumptive negative U Marijuana (THC) Screen Presumptive negative Drugs of Abuse Note Disclamer Blood Type Antibody Screen 01/29/17 01/29/17 14:48 19:30 WBC RBC Hgb Hct MCV MCH MCHC RDW Plt Count Creatinine 0.5 L Estimated GFR > 60 Uric Acid 5.7 AST 13 ALT 8 Lactate Dehydrogenase 165 Urine Color Urine Turbidity Urine pH Ur Specific Ladd Urine Protein Urine Glucose (UA) Urine Ketones Urine Blood Urine Nitrite Urine Bilirubin Urine Urobilinogen Ur Leukocyte Esterase Urine WBC (Auto) Urine RBC (Auto) U Epithel Cells (Auto) Urine Mucus Urine Opiates Screen Urine Methadone Screen Ur Barbiturates Screen Ur Phencyclidine Scrn Ur Amphetamines Screen U Benzodiazepines Scrn Urine Cocaine Screen U Marijuana (THC) Screen Drugs of Abuse Note Blood Type A POSITIVE Antibody Screen Negative
[2017-01-30 16:16] VITALS: BP 139/63
[2017-01-30 17:10] LABS: Total Protein 24 Hour,Urine 297.25 (2-200)
--- NOTE | 2017-01-30 17:49 | Event Note ---
Date: 01/30/17 Patient seen and examined, doing well no issues. She has remained asymptomatic for previously. Her blood pressure has remained labile and less than severe range. We'll start low-dose labetalol at this time 100 mg twice a day. 24 hour urine protein is complete and she has 295 mg Plan at this point is to discharge patient home. She will call Agata at [facility] Office to schedule follow-up next week She will check her blood pressure over the weekend and will head to the hospital [facility] for values in the severe range
--- NOTE | 2017-01-30 17:54 | Discharge Summary ---
Providers - Providers Date of Admission: 01/30/17 09:54 Date of discharge: 01/30/17 Attending physician: MARYAM VERMA Primary care physician: MARYAM VERMA Hospitalization Reason for admission: observation Discharge diagnosis: other (IUP at ~ 36 weeks with Hypertensive disorder of ) Hospital course: 26-year-old at 35+6 weeks presented with elevated BP and r/o labour, she is a [facility] patient. Essential history this patient seen in the office and was sent to the triage for concern about vaginal bleeding; she had a BPP and NAYANA done which were 8 out of 8 with an NAYANA of 20. In triage however, patient was noted to have elevated blood pressures in the range 141-157/97-109. She gives an oral history of having ??increased blood pressure prior to being but it is not clear that she saw a physician and she was never started on medication. Early In , she claims her blood pressure was normal. Denies headache, no scotomata but she does have a history of heartburn. Patient was admitted for observation and 24-hour urine protein collection HELLP labs obtained were within normal She completed a [place] course on 01/30/17 Her blood pressure remained in the range of 130s to 150s over 70s to 90s, her BP was never in the severe range She remained asymptomatic for pre-E 24 hour urine obtained showed a result of 295 mg Plan is to discharge patient home at this time. She will have a BPP done before discharge She will call [facility] on Thursday to schedule follow-up Condition at discharge: Good Disposition: [id number] TO HOME OR SELFCARE - Discharge Diagnoses (1) 35 to 36 weeks gestation of Status: Acute (2) Hypertension affecting in third trimester Status: Acute Plan - Provider Discharge Summary Activity: routine Instructions: other (please check her blood pressure daily. call for systolic over 160 or diastolic over 110) Additional instructions: [] Smoking cessation referral if applicable(refer to patient education folder for contact #) [] Refer to [facility] Booklet Call your doctor immediately for: * Fever > 100.5 * Heavy vaginal bleeding ( >1 pad per hour) * Severe persistent headache * Shortness of breath * Reddened, hot, painful area to leg or breast * Drainage or odor from incision. * Keep incision clean and dry at all times and follow doctor's instructions regarding bathing/showering - Follow up plan Follow up: MARYAM VERMA MD [Primary Care Provider] - 02/02/17 ROSALIA GARCIA MD [Staff Physician] - 02/02/17
[2017-01-30] MEDS: CELESTONE SOLUSPAN IM SCH (18:24)
[2017-01-31] MEDS ORDERED: CELESTONE SOLUSPAN IM SCH (17:30)
--- NOTE | 2017-02-01 10:34 | Ultrasound Report ---
ULTRASOUND BIOPHYSICAL PROFILE: History: well being, hypertension Technique: Transabdominal ultrasound with Doppler interrogation. 2 - breathing movements 2 - movements 2 - posture and tone 2 - Qualitative amniotic fluid volume 8 - TOTAL SCORE OF POSSIBLE 8 Heart Rate (bpm) 141
== END 2017-01-30 19:10 | disposition home or self-care (01) | DRG 781 ==
LOC: TRG 12:06 → LD 12:23 → OBSVTOIN 01-30 09:54
PROVIDERS: ADMIT Obstetrics & Gynecology Gynecology; ATTEND Obstetrics & Gynecology Gynecology
DX: O16.3 Unspecified maternal hypertension, third trimester (principal); Z3A.35 35 weeks gestation of pregnancy
CPT/HCPCS: 36415; 76805; 76815; 76819; 80307; 81001; 82565; 83615; 84156; 84450; 84460; 84550; 85027; 86850; 86900; 86901; G0378; J0702; J7120